=== PATIENT | female | born 2005 | race African-American/Black ===

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

== ENCOUNTER → 2024-02-21 14:43 | Outpatient (CLI) | payer OTHER | END | disposition home or self-care (01) | LOC: PRENATAL 14:43 | PROVIDERS: ATTEND Obstetrics & Gynecology Maternal & Fetal Medicine | DX: O26.849 Uterine size-date discrepancy, unspecified trimester (principal); O36.8199 Decreased fetal movements, unspecified trimester, other fetus; Z3A.28 28 weeks gestation of pregnancy ==